=== PATIENT | male | born 1990 | race Hispanic/Latino ===

== ENCOUNTER 2022-12-25 18:15 | Emergency (ER) | payer OTHER ==
[~2022-12-25] VITALS: Ht 167.6 cm; Wt 63.5 kg
[2022-12-25 18:18] VITALS: BP 116/90
== END 2022-12-25 19:43 | disposition left against medical advice (07) ==
LOC: EDH 18:15
DX: R07.9 Chest pain, unspecified (principal); Z53.21 Procedure and treatment not carried out due to patient leaving prior to being seen by health care provider
CPT/HCPCS: 93005; 99281